=== PATIENT | male | born 1950 | race Caucasian/White ===

== ENCOUNTER 2024-10-07 10:11 | Day surgery (SDC) | payer MEDICARE ==
[2024-10-07] MEDS ORDERED: Fleet Saline Enema 133 ML BOT ONE (11:13)
[2024-10-07] MEDS ORDERED: PROPOFOL 40 ML ONE (13:11)
[2024-10-07] MEDS ORDERED: PHENYLEPHRINE-NS 100 MCG/ML 10 ML SYRINGE ONE (13:32)
[2024-10-07] MEDS ORDERED: PROPOFOL 20 ML ONE (13:45)
== END 2024-10-07 14:51 | disposition home or self-care (01) ==
LOC: SDC 10:11
PROVIDERS: ATTEND Internal Medicine Gastroenterology
PROC: 0D5M8ZZ Destruction of Descending Colon, Via Natural or Artificial Opening Endoscopic (ICD-10-PCS; principal; 2024-10-07)
DX: D12.3 Benign neoplasm of transverse colon (principal); K63.5 Polyp of colon; K59.04 Chronic idiopathic constipation; K64.8 Other hemorrhoids; Z86.0100 Personal history of colon polyps, unspecified; J44.9 Chronic obstructive pulmonary disease, unspecified; Z79.82 Long term (current) use of aspirin
CPT/HCPCS: 45385; J2704; 88305

== ENCOUNTER 2025-01-02 13:22 | Outpatient (CLI) | payer MEDICARE | END 2025-01-02 13:23 | disposition home or self-care (01) | LOC: RAD 13:22 | PROVIDERS: ATTEND Student in an Organized Health Care Education/Training Program | DX: R06.00 Dyspnea, unspecified (principal) | CPT/HCPCS: 71046 ==